=== PATIENT | female | born 1940 | race Caucasian/White ===

== ENCOUNTER 2021-08-25 14:12 | Emergency (ER) | payer OTHER ==
[~2021-08-25] VITALS: Ht 162.6 cm; Wt 79.4 kg
[~2021-08-25 14:12] MED LIST: ALBU8.5H8 IH; ALPR0.5T PO; ASPI-807 PO; CALC-1180 PO; CALC1TAB30 PO; CITA40TA22 PO; ESTR1TAB21 PO; LOSA50TA3 PO; MULT1CAP34 PO
--- NOTE | 2021-08-25 14:24 | NUR ---
BIB [facility] 76 FROM [facility],C/O CHEST PAIN X 1 HR. PT DENIES ANY CHEST PAIN AT THIS TIME BUT STATED VERY COUPLE OUR MINUTES SHE HAS SHARP PAIN ON HER RIGHT SIDE NON RADIATING. PT ATTCHED TO MONITOR, NO RESP DISTRESS NOTED, ON ROOM AIR. A&OX4. WRM BLANKET PROVIDED FOR COMFORT. AWAITING MD PIÑA.
--- NOTE | 2021-08-25 14:29 | NUR ---
DR MONTEJO AT BEDSIDE
[2021-08-25 15:06] LABS: BASOPHILS # (AUTO) 0.1 K/uL (0.0-0.2); BASOPHILS % (AUTO) 0.8 % (0.0-2.0); EOSINOPHILS % (AUTO) 1.5 % (0.0-6.0); HEMATOCRIT 37 % (33-45); HEMOGLOBIN 12.4 g/dL (11.5-14.8); LYMPHOCYTES # (AUTO) 1.7 K/uL (0.8-4.8); LYMPHOCYTES % (AUTO) 24.9 % (20.0-44.0); MEAN CORPUSCULAR HGB CONC 34 g/dl (31.0-36.0); MEAN CORPUSCULAR VOLUME 92 fL (82-100); MONOCYTES # (AUTO) 0.6 K/uL (0.1-1.30); MONOCYTES % (AUTO) 8.7 % (2.0-12.0); NEUTROPHILS # (AUTO) 4.4 K/uL (1.8-8.9); NEUTROPHILS % (AUTO) 64.1 % (43.0-81.0); PLATELET COUNT (AUTO) 193 K/uL (150-450); RED BLOOD CELL COUNT(AUTO) 4.04 MIL/uL (4.0-5.2); WHITE BLOOD COUNT (AUTO) 6.9 K/uL (4.3-11.0)
[2021-08-25 15:16] LABS: CALCIUM, SERUM 8.8 mg/dL (8.5-10.1); CREATININE 0.8 mg/dL (0.6-1.3); GLUCOSE 103 mg/dL (74-106); UREA NITROGEN, BLOOD 18 mg/dL (7-18)
--- NOTE | 2021-08-25 15:58 | NUR ---
BHARGAVI SISTER [phone] FROM [place]
[2021-08-25] MEDS ORDERED: ASPIRIN 325 MG TABLET PO ONE (16:30)
[2021-08-25] MEDS ORDERED: hydrALAZINE HCL IV 20 MG VIAL IV ONE (16:30)
[2021-08-25] MEDS ORDERED: NITROGLYCERIN PACKET 1 GM PACKET TOP ONE (16:30)
[2021-08-25] MEDS ORDERED: hydrALAZINE HCL IV 20 MG VIAL ONE (16:36)
[2021-08-25] MEDS ORDERED: NITROGLYCERIN PACKET 1 GM PACKET ONE (16:36)
[2021-08-25] MEDS ORDERED: ASPIRIN 325 MG TABLET ONE (16:37)
[2021-08-25] MEDS ORDERED: SERT50TA PO (16:45)
[2021-08-25] MEDS ORDERED: ASPI-1420 PO (16:45)
[2021-08-25] MEDS ORDERED: ATOR40TA PO (16:45)
[2021-08-25] MEDS ORDERED: CALC1TAB30 PO (16:45)
[2021-08-25] MEDS ORDERED: MEMA10TA PO (16:45)
[2021-08-25] MEDS ORDERED: METO25TA20 PO (16:45)
--- NOTE | 2021-08-25 16:59 | NUR ---
RAPID COVID DONE AND SENT TO LAB
--- NOTE | 2021-08-25 18:57 | NUR ---
SUBMITTED MOVE SHEET
--- NOTE | 2021-08-25 19:21 | NUR ---
CALLED HAYDEE ROMERO AND REQUESTED HAYDEE GALEAS TO CALLBACK
[2021-08-25 19:30] LABS: CARBON DIOXIDE 28 mmol/L (21-32); CHLORIDE 107 mmol/L (98-107); POTASSIUM 3.9 mmol/L (3.5-5.1); SODIUM SERUM 140 mmol/L (136-145)
[2021-08-25 19:40] VITALS: BP 164/91
--- NOTE | 2021-08-25 20:48 | NUR ---
ACCEPT AT [facility] under Dr Watt, report [phone] PRN ETA [id number]
--- NOTE | 2021-08-25 21:27 | NUR ---
REPORT GIVEN TO CHANELLE CHARGE NURSE FROM [facility]
--- NOTE | 2021-08-25 22:09 | NUR ---
REPORT GIVEN TO [facility] FOR PT TO TRANSFER TO [facility]. VSS. ALL BELONGINGS WITH PT.
== END 2021-08-25 23:06 | disposition short-term general hospital (02) ==
LOC: ER 14:15
DX: R07.9 Chest pain, unspecified (principal); I10 Essential (primary) hypertension; Z79.899 Other long term (current) drug therapy; Z20.822 Contact with and (suspected) exposure to COVID-19; Z86.03 Personal history of neoplasm of uncertain behavior; Z90.710 Acquired absence of both cervix and uterus; M50.90 Cervical disc disorder, unspecified, unspecified cervical region
CPT/HCPCS: 99285; 96374; 71045; 87426; 93005; 85025; 80048; 36415; 84484 ×3; 83880; J0360; C9803